=== PATIENT | female | born 1975 | race African-American/Black ===

== ENCOUNTER 2025-10-01 14:47 | Observation (INO) ==
--- NOTE | 2025-10-01 15:09 | EKG ---
Test Reason : CHEST PAIN Blood Pressure : */* mmHG Vent. Rate : 105 BPM Atrial Rate : * BPM P-R Int : * ms QRS Dur : 88 ms QT Int : 388 ms P-R-T Axes : * -33 40 degrees QTc Int : 512 ms Atrial fibrillation with rapid ventricular response with premature ventricular or aberrantly conducted complexes Left axis deviation Low voltage QRS Cannot rule out Anterior infarct , age undetermined Abnormal ECG No previous ECGs available Confirmed by Noel Posey MD ([id number]) on 10/02/2025 5:49:03 AM Referred By: Confirmed By: Noel Posey MD
--- NOTE | 2025-10-01 16:10 | RAD ---
EXAM: CHEST, 1 VIEW HISTORY: CHEST PAIN; COMPARISON: None. TECHNIQUE: AP FINDINGS: Prominent cardiac silhouette, accentuated by AP technique. Pulmonary vascular engorgement. Diffuse hazy airspace opacities. No large pleural effusion or visible pneumothorax. IMPRESSION: Pulmonary vascular engorgement and suspected pulmonary edema. THIS IS AN ELECTRONICALLY VERIFIED FINAL REPORT 10/01/2025 4:06 PM - Electronically signed by Obed Briggs MD
[2025-10-01 16:20] LABS: BLOOD/HEMOGLOBIN,URINE NEGATIVE (NEGATIVE); LEUKOCYTE ESTERASE ,URINE 1+ (NEGATIVE); NITRITES,URINE NEGATIVE (NEGATIVE)
[2025-10-01 16:20] LABS: COR NA(FOR HYPERGLY) 149.0 mmol/L (136-145); CREATININE 1.29 mg/dL (0.55-1.02); eGFR NON BLACK RACES 46.0 (>60)
[2025-10-01 16:22] LABS: INR 1.53 (0.8-1.3)
[2025-10-01 16:23] LABS: MEAN PLATELET VOLUME 9.2 fL (7.4-11.0); RED CELL DISTRIBUTION WIDTH 17.4 % (11.6-16.5)
[2025-10-01 16:27] LABS: APPEARANCE,URINE CLEAR (CLEAR)
--- NOTE | 2025-10-01 16:27 | DR.CP ---
HPI Time Seen Time Seen by Provider: 10/01/25 15:35 PCP Primary Care Physician: Fede Shah in [place] Complaint Chief Complaint Doctor Comments: Patient discharged from [facility] on Tuesday for CHF exacerbation. Patient states she has been getting worsening shortness of breath. She admits she has been eating lots of salt and has not been sticking to her liquid restrictions. She states she also had a little bit of right-sided chest pain. She states her chest pain is chronic and has followed up with cardiology in the past and it is unchanged at this time. She states her shortness of breath is worsening and has some pedal edema which she states is what happens to her when her CHF gets bad. Chief Complaint:: Patient states that she was [facility] for a CHF exacerbation. She states that she was short of breath when she was discharged and it has not gotten better. She also complains of right sided chest pain that she describes as chronic, but states that it is a little worse today. She reports that she has to sleep sitting up, and feels like she is swelling more than usual. COVID-19 Coronavirus risk:travel/contact w/high risk person: No Has patient experienced Coronavirus symptoms: No Source History Provided: Patient Mode of Arrival Mode of Arrival: Wheelchair Timing Onset of Chief Complaint: 09/29/25 PMH PMH Past Medical History: Yes Past Medical History: CHF, Diabetes and Hypertension Past Medical History Comment: Afib Past Surgical History: No Family History History of Family Medical Conditions: Yes Family Medical History: Diabetes Mellitus, Cancer, [place], Coronary Artery Disease, Heart Failure and Hypertension Social History Does patient currently use any type of tobacco product: Yes Have you used tobacco products in the last 12 months: Yes Type of Tobacco Use: Cigarettes Does any household member use tobacco: Yes Alcohol Use: Occasionally Do you use any recreational Drugs:: Yes (Crack - quit 1 month ago) Lives With: Family Lives Where: Home Travel Risk Coronavirus risk:travel/contact w/high risk person: No Has patient experienced Coronavirus symptoms: No Infectious screening In the last 2 months have you had wt loss of >10#?: NO Have you had fever, night sweats or hemotysis?: No Have you traveled outside the country in the last 6 months?: No Isolation: Standard ROS Review of Systems Constitutional: No Symptoms Reported; negative Fever Eyes: No Symptoms Reported ENTM: No Symptoms Reported Respiratoy: See HPI Cardiovascular: See HPI Gastrointestinal/Abdominal: No Symptoms Reported Genitourinary: No Symptoms Reported Neurological: No Symptoms Reported Musculoskeletal: No Symptoms Reported Integumentary: No Symptoms Reported Hematologic/Lymphatic: No Symptoms Reported Endocrine: No Symptoms Reported Psychiatric: No Symptoms Reported All Other Systems: Reviewed and Negative PE Vitals Vitals: Vital Signs Temperature 98.3 F Pulse Rate 103 Pulse Rate 109 Pulse Rate 112 Pulse Rate 113 Pulse Rate 116 Pulse Rate 107 Pulse Rate 108 Pulse Rate 107 Pulse Rate 111 Pulse Rate 104 Pulse Rate 111 Pulse Rate 111 Pulse Rate 119 Pulse Rate 113 Pulse Rate 113 Pulse Rate 108 Pulse Rate 0 Respiratory Rate 29 Respiratory Rate 29 Respiratory Rate 24 Respiratory Rate 28 Respiratory Rate 25 Respiratory Rate 27 Respiratory Rate 32 Respiratory Rate 24 Respiratory Rate 30 Respiratory Rate 26 Respiratory Rate 23 Respiratory Rate 32 Respiratory Rate 30 Respiratory Rate 22 Respiratory Rate 24 Respiratory Rate 34 Blood Pressure 142/101 Blood Pressure 142/101 Blood Pressure 136/94 Blood Pressure 155/103 Blood Pressure 159/85 Blood Pressure 158/105 Blood Pressure 137/99 Blood Pressure 139/107 Blood Pressure 139/105 Blood Pressure 139/107 O2 Sat by Pulse Oximetry 96 O2 Sat by Pulse Oximetry 94 O2 Sat by Pulse Oximetry 99 O2 Sat by Pulse Oximetry 97 O2 Sat by Pulse Oximetry 96 O2 Sat by Pulse Oximetry 97 O2 Sat by Pulse Oximetry 96 O2 Sat by Pulse Oximetry 94 O2 Sat by Pulse Oximetry 98 O2 Sat by Pulse Oximetry 97 O2 Sat by Pulse Oximetry 98 General Limitations: No Limitations General Appearance: Alert and In No Apparent Distress Head Head Exam: Normal Inspection Eyes Eye exam: Normal Appearance Chest Chest Inspection: Normal Inspection Respiratory Respiratory Exam: Normal Lung Sounds Bilat Cardiovascular Cardiovascular Exam: Regular Rate and Normal Rhythm Pulse: Normal Edema: Normal Abdominal Exam Abdominal Exam: Normal Inspection, Normal Bowel Sounds and Soft; negative Distention, Tenderness, Guarding, Rebound, Rigidity or Ascites Extremities Extremities Exam: Normal Capillary Refill and Edema (1+ pedal edema to mid patel.) Back Back Exam: Normal Inspection Neurologic Neurological Exam: Alert and Oriented X3 Psychiatric Psychiatric Exam: Normal Affect and Normal Mood Skin Skin Exam: Warm, Dry, Intact and Normal Color COURSE Treatment Treatment: Patient with very difficult IV access had to use central line. Patient has had some improvement with IV Lasix in ER. Patient is agreeable to admission. Discussed results of workup so far. Critical Care Notes Total Time (mins): 36 Critical Diagnosis: CHF exacerbation Critical Interventions: Time spent starting central line with surgeon, on patient education, ordering and interpreting workup. Ruling out pulmonary embolism. Time also spent coordinating care with hospitalist and setting up for admission. ROR Labs Reviewed Laboratory Results Reviewed?: Yes 10/01/25 16:02 10/01/25 16:02 Laboratory: WBC 2.8 X10^3/uL (3.6-10.0) L 10/01/25 16:02 RBC 3.34 X10^6/uL (3.5-5.4) L 10/01/25 16:02 Hgb 9.0 g/dL (12.0-16.0) L 10/01/25 16:02 Hct 28.3 % (36.0-47.0) L 10/01/25 16:02 MCV 84.8 fL (80.0-100.0) 10/01/25 16:02 MCH 27.1 pg (27.0-34.0) 10/01/25 16:02 MCHC 32.0 g/dL (33.0-35.0) L 10/01/25 16:02 RDW 17.4 % (11.6-16.5) H 10/01/25 16:02 Plt Count 181 X10^3/uL (150.0-450.0) 10/01/25 16:02 MPV 9.2 fL (7.4-11.0) 10/01/25 16:02 Neut % (Auto) 59.1 % (42.0-75.0) 10/01/25 16:02 Lymph % (Auto) 27.7 % (21.0-51.0) 10/01/25 16:02 Bollinger % (Auto) 8.6 % (0.0-13.0) 10/01/25 16:02 Eos % (Auto) 4.1 % (0.9-2.9) H 10/01/25 16:02 Baso % (Auto) 0.5 % (0.2-1.0) 10/01/25 16:02 Neut # (Auto) 1.7 x10^3/uL (2.2-4.8) L 10/01/25 16:02 Lymph # (Auto) 0.8 X10^3/uL (1.3-2.9) L 10/01/25 16:02 Bollinger # (Auto) 0.2 x10^3/uL (0.3-0.8) L 10/01/25 16:02 Eos # (Auto) 0.1 x10^3/uL (0.0-0.2) 10/01/25 16:02 Baso # (Auto) 0.0 X10^3/uL (0.0-0.1) 10/01/25 16:02 Absolute Nucleated RBC 0.5 /100WBC 10/01/25 16:02 PT 18.5 SECONDS (11.8-14.3) 10/01/25 16:02 INR Target Range - 10/01/25 16:02 INR 1.53 (0.8-1.3) H 10/01/25 16:02 APTT 36.2 SECONDS (22.9-36.5) 10/01/25 16:02 PTT Comment - 10/01/25 16:02 D-Dimer 1.10 ug/ml (0.0-0.57) H 10/01/25 16:02 Sodium 142 mmol/L (136-145) 10/01/25 16:02 Corrected Sodium 149 mmol/L (136-145) H 10/01/25 16:02 Potassium 3.8 mmol/L (3.5-5.1) 10/01/25 16:02 Chloride 103 mmol/L (98-107) 10/01/25 16:02 Carbon Dioxide 31.5 mmol/L (21-32) 10/01/25 16:02 BUN 28 mg/dL (7-18) H 10/01/25 16:02 Creatinine 1.29 mg/dL (0.55-1.02) H 10/01/25 16:02 Est GFR (MDRD) Af Amer 56 (>60) L 10/01/25 16:02 Est GFR (MDRD) Non-Af 46 (>60) L 10/01/25 16:02 Glucose 394 mg/dL (65-99) H 10/01/25 16:02 Calcium 7.8 mg/dL (8.5-10.1) L 10/01/25 16:02 Troponin I High Sens 16.2 ng/L (4.0-60.0) 10/01/25 17:50 B-Natriuretic Peptide 705 pg/mL (0-79) H 10/01/25 16:02 Specimen Type Clean catch urine 10/01/25 15:38 Urine Color Straw (YELLOW) 10/01/25 15:38 Urine Appearance Clear (CLEAR) 10/01/25 15:38 Urine pH 7.0 (5.0 - 8.0) 10/01/25 15:38 Ur Specific Central 1.005 (1.000-1.030) 10/01/25 15:38 Urine Protein Negative (NEGATIVE) 10/01/25 15:38 Urine Glucose (UA) 3+ (NEGATIVE) 10/01/25 15:38 Urine Ketones Negative (NEGATIVE) 10/01/25 15:38 Urine Blood Negative (NEGATIVE) 10/01/25 15:38 Urine Nitrite Negative (NEGATIVE) 10/01/25 15:38 Urine Bilirubin Negative (NEGATIVE) 10/01/25 15:38 Urine Urobilinogen Normal (NORMAL) 10/01/25 15:38 Ur Leukocyte Esterase 1+ (NEGATIVE) 10/01/25 15:38 Urine RBC None seen /HPF (0-3) 10/01/25 15:38 Urine WBC 0-2 /HPF (0-5) 10/01/25 15:38 Ur Squamous Epith Cells Rare /HPF (NEGATIVE) 10/01/25 15:38 Urine Bacteria Trace /HPF (NEGATIVE) 10/01/25 15:38 Ur Culture Indicated? No/not indicated 10/01/25 15:38 Urine Opiates Screen Negative (NEG=<300) 10/01/25 15:38 Urine Methadone Screen Negative (NEG=<300) 10/01/25 15:38 Ur Barbiturates Screen Negative (NEG=<200) 10/01/25 15:38 Ur Phencyclidine Scrn Negative (NEG=<25) 10/01/25 15:38 Ur Amphetamines Screen Negative (NEG=<1000) 10/01/25 15:38 U Benzodiazepines Scrn Negative (NEG=<200) 10/01/25 15:38 Urine Cocaine Screen Negative (NEG=<300) 10/01/25 15:38 U Marijuana (THC) Screen Negative (NEG=<50) 10/01/25 15:38 Other Results Comments: Name: CHICHI ACUÑA : 1975 Sex: F Location: ER Order Number(s): [id number] Procedure(s):CTA, CHEST Ordering Physician: Piter Clark Primary Care: Andrzej CHO Service Date: 10/01/25 Service Time: 1634 EXAM: CTA, CHEST HISTORY: Shortness of breath, elevated D-dimer COMPARISON: Frontal chest radiograph same day 3:48 p.m. TECHNIQUE: CT angiography of the chest with intravenous contrast. Three-dimensional reconstructions and/or MIPS images produced and reviewed. FINDINGS: The bolus timing is adequate. Negative for pulmonary embolus. The thoracic aorta tapers normally. The heart is enlarged. There is a small pericardial effusion present. There is mediastinal lymphadenopathy present. There is bilateral axillary lymphadenopathy present. There are bilateral layering pleural effusions, moderate on the right and small on the left. Limited visualization of the upper abdomen demonstrates reflux of contrast into the hepatic vasculature suggesting right heart dysfunction. No acute upper abdominal process. Lung windows demonstrate bilateral interstitial and airspace opacities suggesting pulmonary edema. No suspicious bony lesion. IMPRESSION: Negative for pulmonary embolus. Decompensated congestive heart failure. All CT scans at this facility use dose modulation, iterative reconstruction, and/or weight based dosing when appropriate to reduce radiation dose to as low as reasonably achievable. THIS IS AN ELECTRONICALLY VERIFIED FINAL REPORT 10/01/2025 5:54 PM - Electronically signed by Donny Woodson MD XRAY X-ray Results: Name: CHICHI ACUÑA : 1975 Sex: F Location: ER Order Number(s): [id number] Procedure(s):CHEST, 1 VIEW X-RAY Ordering Physician: Piter Clark Primary Care: Andrzej CHO Service Date: 10/01/25 Service Time: 1455 EXAM: CHEST, 1 VIEW HISTORY: CHEST PAIN; COMPARISON: None. TECHNIQUE: AP FINDINGS: Prominent cardiac silhouette, accentuated by AP technique. Pulmonary vascular engorgement. Diffuse hazy airspace opacities. No large pleural effusion or visible pneumothorax. IMPRESSION: Pulmonary vascular engorgement and suspected pulmonary edema. THIS IS AN ELECTRONICALLY VERIFIED FINAL REPORT 10/01/2025 4:06 PM - Electronically signed by Obed Briggs MD EKG Rate: 105 Tyner: LAD Rhythm: Afib ST: Normal Opioid Opioid Risk Tool Age (Mayco box if 16-45): No History of Preadolescent Sexual Abuse: No Total: 0 Total Score Risk Category: Low Risk Copyright: [facility] predicting aberrant behaviors Discharge Plan Diagnosis Discharge Problem: CHF exacerbation, A-fib, Diabetes, CKD (chronic kidney disease), HIV (human immunodeficiency virus infection) Discharge Plan Patient Disposition: ADMITTED INPATIENT Condition: Stable Prescriptions: No Action insulin glargine [Lantus U-100 Insulin] 100 unit/mL solution 15 unit SUBCUT BID diltiazem HCl [DILT-XR] 240 mg capsule,ext.rel 24h degradable 240 mg PO QDAY amiodarone 200 mg tablet 200 mg PO BID metoprolol succinate 50 mg tablet extended release 24 hr 100 mg PO QDAY bumetanide 1 mg tablet 1 mg PO QDAY Eliquis 5 mg tablet 5 mg PO BID Biktarvy 50-200-25 mg tablet 1 tab PO QDAY Health Concerns: Post Hospitalization: new medications and changes needed to prevent readmission or further decline. Pt educated and given instructions on all concerns. Plan of Treatment: Continue with present treatment and follow up plan. Pt is to keep follow up appointment as instructed and take medications as ordered. Orders to Discharge Patient Discharge Orders: Transfer (Routine); Ordered 10/01/25 Ordered By: Piter Clark Follow ups/Referrals Follow ups/Referrals: ,Misc [Primary Care Provider] - 3 days Instructions Stand Alone Forms: Find Help Web Site, Post Hospital Follow Up Care Print Language: YI
[2025-10-01 16:28] LABS: SQUAMOUS EPITHELIAL CELL,UR RARE /HPF (NEGATIVE)
[2025-10-01] MEDS: OFIRMEV IV 1000 MG VIAL 1,000 MG/100 ML VIAL IV ONE ×2 (16:29→20:36)
[2025-10-01] MEDS: LASIX IVP ONE (16:51)
[2025-10-01] MEDS: OMNIPAQUE 350 mg/mL 100 mL BTL IVP NR (17:21)
[2025-10-01] MEDS: PERCOCET TAB 5/325 MG PO ONE (17:46)
--- NOTE | 2025-10-01 17:58 | CT ---
EXAM: CTA, CHEST HISTORY: Shortness of breath, elevated D-dimer COMPARISON: Frontal chest radiograph same day 3:48 p.m. TECHNIQUE: CT angiography of the chest with intravenous contrast. Three-dimensional reconstructions and/or MIPS images produced and reviewed. FINDINGS: The bolus timing is adequate. Negative for pulmonary embolus. The thoracic aorta tapers normally. The heart is enlarged. There is a small pericardial effusion present. There is mediastinal lymphadenopathy present. There is bilateral axillary lymphadenopathy present. There are bilateral layering pleural effusions, moderate on the right and small on the left. Limited visualization of the upper abdomen demonstrates reflux of contrast into the hepatic vasculature suggesting right heart dysfunction. No acute upper abdominal process. Lung windows demonstrate bilateral interstitial and airspace opacities suggesting pulmonary edema. No suspicious bony lesion. IMPRESSION: Negative for pulmonary embolus. Decompensated congestive heart failure. All CT scans at this facility use dose modulation, iterative reconstruction, and/or weight based dosing when appropriate to reduce radiation dose to as low as reasonably achievable. THIS IS AN ELECTRONICALLY VERIFIED FINAL REPORT 10/01/2025 5:54 PM - Electronically signed by Donny Woodson MD
[2025-10-01] MEDS: APRESOLINE INJ 20 MG VIAL IVP PRN (19:34)
[2025-10-01] MEDS: CONSULT PHARMACY - POTASSIUM & MAGNESIUM XX SCH (20:30)
--- NOTE | 2025-10-01 20:30 | RAD ---
EXAM: CHEST HISTORY: s/p central line insertion; COMPARISON: Portable chest x-ray from earlier on the same date. TECHNIQUE: Frontal view of the chest was submitted for interpretation. FINDINGS: Interval placement of a left subclavian central line with the distal tip projecting at the superior margin of the SVC. No evidence for acute infiltrates, pleural effusion, or pneumothorax. Interval decreased haziness projecting over the lung kumar. Stable cardiac enlargement. No evidence for pulmonary vascular congestion. IMPRESSION: Central line as noted. No evidence for pneumothorax. Stable cardiac enlargement. No evidence for pulmonary vascular congestion. Interval decreased haziness projecting over the lung kumar. THIS IS AN ELECTRONICALLY VERIFIED FINAL REPORT 10/01/2025 8:26 PM - Electronically signed by Earle Post DO
[2025-10-01] MEDS ORDERED: TYLENOL 325 MG TAB PO PRN (20:31)
[2025-10-01] MEDS: OMNIPAQUE 350 mg/mL 100 mL BTL 100 ML ONE (20:35)
[2025-10-01] MEDS: SNACK - Diabetic Appropriate PO SCH (20:39)
[2025-10-01 20:57] VITALS: BMI 37.7
[2025-10-01] MEDS: PERCOCET TAB 5/325 MG ONE (20:58)
[2025-10-01] MEDS: ELIQUIS PO SCH (21:14)
[2025-10-01] MEDS: K-DUR TAB 20 MEQ PO ONE (21:14)
[2025-10-01] MEDS: CORDARONE TAB 200 MG PO SCH (21:15)
[2025-10-01] MEDS: NORCO 5/325 MG TAB PO PRN (21:15)
[2025-10-01] MEDS: NovoLIN R (or HumuLIN R) SUBCUT PRN (22:34)
[2025-10-01] MEDS: DILAUDID INJ IVP ONE (23:03)
[2025-10-02 02:53] LABS: MEAN PLATELET VOLUME 9.2 fL (7.4-11.0); RED CELL DISTRIBUTION WIDTH 17.4 % (11.6-16.5)
[2025-10-02 03:07] LABS: COR CA(FOR HYPOALB) 8.7 mg/dL (8.5-10.1); COR NA(FOR HYPERGLY) 144 mmol/L (136-145); CREATININE 1.12 mg/dL (0.55-1.02); eGFR NON BLACK RACES 55 (>60)
[2025-10-02] MEDS ORDERED: CONSULT PHARMACY - POTASSIUM & MAGNESIUM XX SCH (05:00)
[2025-10-02] MEDS: K-DUR TAB 20 MEQ PO ONE (05:28)
[2025-10-02] MEDS: LASIX IVP SCH (08:28)
[2025-10-02] MEDS: MAG-OX TAB PO SCH ×2 (08:28→20:14)
[2025-10-02] MEDS: CARDIZEM CD 240 MG 24-HR PO SCH (08:28)
[2025-10-02] MEDS: K-DUR TAB 20 MEQ PO SCH (08:28)
[2025-10-02] MEDS: TOPROL XL PO SCH (08:29)
[2025-10-02] MEDS: ULTRAM PO PRN (09:07)
--- NOTE | 2025-10-02 09:58 | DR.H&P ---
H&P History & Physical for Day of: H&P Date: 10/02/25 Chief Complaint Chief Complaint: SOB, edema History of Present Illness History of Present Illness: Patient is a 49-year-old female with a past medical history of CAD, CHF, atrial fibrillation, hypertension and diabetes presented with worsening shortness of breath and edema. She was recently [facility] on Tuesday and states that she continued to get worse. She has been taking Bumex but reports it has not been working. She does not use oxygen at home. ER workup showed elevated BNP, troponin x 3 negative, D-dimer elevated. CTA was negative for PE, did show decompensated CHF. Patient denies having any echocardiogram recently. She does follow-up with cardiology, Dr. Ordaz. Patient was started on IV Lasix and admitted for further evaluation. She is currently on 2 L nasal cannula. Labs/imaging reviewed: -WBC 2.8 hemoglobin 8.8 potassium 3.5 magnesium 1.6 creatinine 1.12 troponin x 3 negative - BNP 625 - CTA reviewed Plan: Admit to [facility] with telemetry. Consult cardiology. Continue IV Lasix, strict I's and O's, daily weight. Resume home medications. Order echocardiogram. Replace electrolytes as per protocol. Add Toradol 15 mg every 6 as needed. Ambulate as tolerated. Wean oxygen as tolerated. Monitor a.m. labs and imaging. Time spent for clinical assessment, reviewing labs/imaging, physical exam, decision making and documentation greater than 45 mins. Past Medical History Past Medical History: CHF, Diabetes and Hypertension Past Surgical History Surgical History: No History Family History Family Medical History: Diabetes Mellitus, Cancer, [place], Coronary Artery Disease, Heart Failure and Hypertension Social History Does patient currently use any type of tobacco product: Yes Have you used tobacco products in the last 12 months: Yes Type of Tobacco Use: Cigarettes Does any household member use tobacco: Yes Alcohol Use: Occasionally Drug Use: Other Medications Home Medications: Home Medications Medication Instructions Recorded Confirmed Type amiodarone 200 mg tablet 200 mg PO BID 10/01/2510/01 History apixaban 5 mg tablet (Eliquis) 5 mg PO BID 10/01/25 History bictegravir 50 mg-emtricitabine 1 tab PO QDAY 10/01/25 10/01/25 History 200 mg-tenofovir alafenam 25 mg tablet (Biktarvy) bumetanide 1 mg tablet 1 mg PO QDAY 10/01/25 History diltiazem HCl 240 mg 240 mg PO QDAY 10/01/2503/22 History capsule,extended release 24 hr, controlled (DILT-XR) insulin glargine 100 unit/mL 15 unit subcut BID 10/01/25 History subcutaneous solution (Lantus U-100 Insulin) metoprolol succinate 50 mg 100 mg PO QDAY 10/01/2503/22 History tablet,extended release 24 hr Allergies Allergies Allergy/AdvReac Type Severity Reaction Status Date / Time Penicillins Allergy Verified 10/01/25 16:33 Labs 10/02/25 02:35 10/02/25 02:35 Labs: Laboratory WBC 2.8 X10^3/uL (3.6-10.0) L 10/02/25 02:35 RBC 3.24 X10^6/uL (3.5-5.4) L 10/02/25 02:35 Hgb 8.8 g/dL (12.0-16.0) L 10/02/25 02:35 Hct 27.5 % (36.0-47.0) L 10/02/25 02:35 MCV 84.8 fL (80.0-100.0) 10/02/25 02:35 MCH 27.1 pg (27.0-34.0) 10/02/25 02:35 MCHC 32.0 g/dL (33.0-35.0) L 10/02/25 02:35 RDW 17.4 % (11.6-16.5) H 10/02/25 02:35 Plt Count 157 X10^3/uL (150.0-450.0) 10/02/25 02:35 MPV 9.2 fL (7.4-11.0) 10/02/25 02:35 Neut % (Auto) 54.3 % (42.0-75.0) 10/02/25 02:35 Lymph % (Auto) 32.3 % (21.0-51.0) 10/02/25 02:35 [place] % (Auto) 8.4 % (0.0-13.0) 10/02/25 02:35 Eos % (Auto) 4.4 % (0.9-2.9) H 10/02/25 02:35 Baso % (Auto) 0.6 % (0.2-1.0) 10/02/25 02:35 Neut # (Auto) 1.5 x10^3/uL (2.2-4.8) L 10/02/25 02:35 Lymph # (Auto) 0.9 X10^3/uL (1.3-2.9) L 10/02/25 02:35 [place] # (Auto) 0.2 x10^3/uL (0.3-0.8) L 10/02/25 02:35 Eos # (Auto) 0.1 x10^3/uL (0.0-0.2) 10/02/25 02:35 Baso # (Auto) 0.0 X10^3/uL (0.0-0.1) 10/02/25 02:35 Absolute Nucleated RBC 0.4 /100WBC 10/02/25 02:35 PT 18.5 SECONDS (11.8-14.3) 10/01/25 16:02 INR Target Range - 10/01/25 16:02 INR 1.53 (0.8-1.3) H 10/01/25 16:02 APTT 36.2 SECONDS (22.9-36.5) 10/01/25 16:02 PTT Comment - 10/01/25 16:02 D-Dimer 1.10 ug/ml (0.0-0.57) H 10/01/25 16:02 Sodium 141 mmol/L (136-145) 10/02/25 02:35 Corrected Sodium 144 mmol/L (136-145) 10/02/25 02:35 Potassium 3.5 mmol/L (3.5-5.1) 10/02/25 02:35 Chloride 103 mmol/L (98-107) 10/02/25 02:35 Carbon Dioxide 28.8 mmol/L (21-32) 10/02/25 02:35 BUN 23 mg/dL (7-18) H 10/02/25 02:35 Creatinine 1.12 mg/dL (0.55-1.02) H 10/02/25 02:35 Est GFR (MDRD) Af Amer > 60 (>60) 10/02/25 02:35 Est GFR (MDRD) Non-Af 55 (>60) L 10/02/25 02:35 Glucose 217 mg/dL (65-99) H 10/02/25 02:35 POC Glucose (mg/dL) 122 mg/dL (65-99) H 10/02/25 05:54 Calcium 7.6 mg/dL (8.5-10.1) L 10/02/25 02:35 Corrected Calcium 8.7 mg/dL (8.5-10.1) 10/02/25 02:35 Magnesium 1.6 mg/dL (2.0-2.9) L 10/02/25 02:35 Total Bilirubin 0.40 mg/dL (0.2-1.0) 10/02/25 02:35 AST 34 Units/L (15-37) 10/02/25 02:35 ALT 39 Units/L (12-78) 10/02/25 02:35 Alkaline Phosphatase 187 Units/L (46-116) H 10/02/25 02:35 Troponin I High Sens 22.6 ng/L (4.0-60.0) 10/02/25 02:35 B-Natriuretic Peptide 625 pg/mL (0-79) H 10/02/25 02:35 Total Protein 7.2 g/dL (6.4-8.2) 10/02/25 02:35 Albumin 2.6 g/dL (3.4-5.0) L 10/02/25 02:35 Globulin 4.6 g/dL (2.5-4.5) H 10/02/25 02:35 Albumin/Globulin Ratio 0.6 Ratio (1.1-2.1) L 10/02/25 02:35 Specimen Type Clean catch urine 10/01/25 15:38 Urine Color Straw (YELLOW) 10/01/25 15:38 Urine Appearance Clear (CLEAR) 10/01/25 15:38 Urine pH 7.0 (5.0 - 8.0) 10/01/25 15:38 Ur Specific [place] 1.005 (1.000-1.030) 10/01/25 15:38 Urine Protein Negative (NEGATIVE) 10/01/25 15:38 Urine Glucose (UA) 3+ (NEGATIVE) 10/01/25 15:38 Urine Ketones Negative (NEGATIVE) 10/01/25 15:38 Urine Blood Negative (NEGATIVE) 10/01/25 15:38 Urine Nitrite Negative (NEGATIVE) 10/01/25 15:38 Urine Bilirubin Negative (NEGATIVE) 10/01/25 15:38 Urine Urobilinogen Normal (NORMAL) 10/01/25 15:38 Ur Leukocyte Esterase 1+ (NEGATIVE) 10/01/25 15:38 Urine RBC None seen /HPF (0-3) 10/01/25 15:38 Urine WBC 0-2 /HPF (0-5) 10/01/25 15:38 Ur Squamous Epith Cells Rare /HPF (NEGATIVE) 10/01/25 15:38 Urine Bacteria Trace /HPF (NEGATIVE) 10/01/25 15:38 Ur Culture Indicated? No/not indicated 10/01/25 15:38 Urine Opiates Screen Negative (NEG=<300) 10/01/25 15:38 Urine Methadone Screen Negative (NEG=<300) 10/01/25 15:38 Ur Barbiturates Screen Negative (NEG=<200) 10/01/25 15:38 Ur Phencyclidine Scrn Negative (NEG=<25) 10/01/25 15:38 Ur Amphetamines Screen Negative (NEG=<1000) 10/01/25 15:38 U Benzodiazepines Scrn Negative (NEG=<200) 10/01/25 15:38 Urine Cocaine Screen Negative (NEG=<300) 10/01/25 15:38 U Marijuana (THC) Screen Negative (NEG=<50) 10/01/25 15:38 Review of Systems Constitutional: No Symptoms Reported Eyes: No Symptoms Reported ENT: No Symptoms Reported Respiratory: Shortness of Breath and SOB with Excertion Cardiovascular: Edema Gastrointestinal: No Symptoms Reported Genitourinary: No Symptoms Reported Musculoskeletal: No Symptoms Reported Skin: No Symptoms Reported Neurological: No Symptoms Reported Physical Exam Vital Signs: Vital Signs Temperature 97.9 F Temperature 98.4 F Pulse Rate [Brachial] 107 Pulse Rate [Brachial] 91 Respiratory Rate 20 Respiratory Rate 16 Respiratory Rate 20 Blood Pressure [Right Arm] 140/69 Blood Pressure [Right Arm] 134/98 O2 Sat by Pulse Oximetry 94 O2 Sat by Pulse Oximetry 94 Oriented: Normal Respiratory: Diminished Throughout Cardiovascular: Tachycardia and Edema Auscultation: Bowel Sounds: Normal Palpation: Normal Tenderness: Normal Skin: Normal Musculoskeletal: Normal Psychiatric: Normal Mood Description: Calm Affect: Normal Speech Pattern: Clear and Appropriate Assessment/Plan (1) CHF exacerbation: Qualifiers: Heart failure type: unspecified Qualified Code(s): I50.9 - Heart failure, unspecified Status: Acute (2) A-fib: Qualifiers: Atrial fibrillation type: unspecified chronic Qualified Code(s): I48.20 - Chronic atrial fibrillation, unspecified Status: Chronic (3) Diabetes: Qualifiers: Diabetes mellitus type: type 2 Diabetes mellitus intermission coordinator insulin use: with intermission coordinator use Diabetes mellitus complication status: with hyperglycemia Q ualified Code(s): E11.65 - Type 2 diabetes mellitus with hyperglycemia; Z79.4 - nursing home (current) use of insulin Status: Chronic (4) CKD (chronic kidney disease): Qualifiers: Chronic kidney disease stage: unspecified stage Qualified Code(s): N 18.9 - Chronic kidney disease, unspecified Status: Chronic (5) HTN (hypertension): Qualifiers: Hypertension type: primary hypertension Qualified Code(s): I10 - Essential (primary) hypertension Status: Chronic Review H&P Reviewed: Yes Patient was examined?: Yes
[2025-10-02] MEDS: LANTUS SC SCH (10:03)
[2025-10-02] MEDS: BICTEGRAV EMTRICIT TENOFOV ALA PO SCH (10:49)
--- NOTE | 2025-10-02 13:39 | RAD ---
EXAM: CHEST, 1 VIEW HISTORY: CHF EXACERBATION ; CHF, DM, HTN, AFIB COMPARISON: 10/01/2025 TECHNIQUE: AP r.br.br.br cardiac silhouette, accentuated by AP technique. Low lung volumes. Increased hazy perihilar and bibasilar opacities. No large pleural effusion or visible pneumothorax. IMPRESSION: Mild increased hazy perihilar and bibasilar opacities, suspicious for pulmonary edema. THIS IS AN ELECTRONICALLY VERIFIED FINAL REPORT 10/02/2025 1:36 PM - Electronically signed by Obed Briggs MD
--- NOTE | 2025-10-02 14:40 | DR.OPNOTE ---
OP NOTE Pre-Op Diagnosis: Congestive heart failure, lack of IV access Post-Op Diagnosis: Same Procedure Date Date Of Procedure: 10/01/25 Procedure: PROCEDURE: Need for central venous aces NARRATIVE: The patient was placed in the Trendelenburg position and the entire left chest prepped and draped in sterile fashion as was the left neck. The skin overlying the left clavicle infiltrated with 1% Xylocaine and a 16-gauge needle used to puncture left subclavian vein with aspiration of blood and placement of a 0.035 inch wire. Incision made over the wire with a #11 knife blade and dilator placed over the guidewire into the left subclavian vein. Dilator removed and the triple-lumen catheter placed over the wire into the vein. Wire removed. All ports aspirated of blood and flushed with heparinized saline. The catheter then secured to the skin interrupted silk sutures. Postprocedure chest x-ray showed good placement with no pneumothorax. Patient tolerated this well. Type of Anesthesia: Local (1% Xylocaine) Findings: as above Type of Fluids Used:: Normal Saline EBL: minimal Complications:: none Needle/Sponge Count:: correct Disposition/Condition: Pt. tolerated procedure without difficulty. Postprocedure procedure chest x-ray showed no pneumothorax with good placement of the catheter into the junction of the superior vena cava and the atrium
--- NOTE | 2025-10-02 14:44 | DR.CONSULT ---
CONSULT Consultation for Day of: Date: 10/02/25 Chief Complaint Chief Complaint: sob/fast hr Allergies Allergies Allergy/AdvReac Type Severity Reaction Status Date / Time Penicillins Allergy Verified 10/01/25 16:33 History of Present Illness History of Present Illness: 49 yo female- cath 2018 w/o cad- severe JERAMY but no cpap- cardiomyopathy EF 20-50% throughout years- hdad tte/cv few years ago for aflutter- d/glory few days ago from [facility] - was still in ch[facility] so came here- states not so faithful with amiodorone- states faithful with diuretic and doac- found to be in afib/rvr and chf- echo ef 35-45%- pa pressures 61 Past Medical History Past Medical History: CHF, Diabetes and Hypertension Past Surgical History Surgical History: No History Family History Family Medical History: Diabetes Mellitus, Cancer, [place], Coronary Artery Disease, Heart Failure and Hypertension Social History Does patient currently use any type of tobacco product: Yes Have you used tobacco products in the last 12 months: Yes Type of Tobacco Use: Cigarettes Does any household member use tobacco: Yes Alcohol Use: Occasionally Drug Use: Other Medications Home Medications: Penicillins Allergy (Verified 10/01/25 16:33) CONTINUE taking the following medications amiodarone 200 mg tablet 200 mg PO BID 10/01/25 [History] apixaban 5 mg tablet (Eliquis) 5 mg PO BID 10/01/25 [History] bictegravir 50 mg-emtricitabine 200 mg-tenofovir alafenam 25 mg tablet (Biktarvy) 1 tab PO QDAY 10/01/25 [History] bumetanide 1 mg tablet 1 mg PO QDAY 10/01/25 [History] diltiazem HCl 240 mg capsule,extended release 24 hr, controlled (DILT-XR) 240 mg PO QDAY 10/01/25 [History] insulin glargine 100 unit/mL subcutaneous solution (Lantus U-100 Insulin) 15 unit subcut BID 10/01/25 [History] metoprolol succinate 50 mg tablet,extended release 24 hr 100 mg PO QDAY 10/01/25 [History] Physical Exam Vital Signs: Vital Signs Temperature 98.4 F Temperature 97.9 F Pulse Rate [Brachial] 98 Pulse Rate [Brachial] 107 Respiratory Rate 20 Respiratory Rate 20 Respiratory Rate 20 Respiratory Rate 16 Blood Pressure [Right Arm] 137/74 Blood Pressure [Right Arm] 140/69 O2 Sat by Pulse Oximetry 97 O2 Sat by Pulse Oximetry 94 alert ox3 mild resp distress decreased bs bases irreg irreg mild edema labs: hct 27 wbc 2.8 plt 157 d dimer 1.2 but cta : no clot inr 1.57 so doac effect cr 1.12 bnp 600 CTA: no PE/but chf/effusions cxr: chf echo: ef 35-40% big LA/r heart PA 60 Plan (1) CHF exacerbation: Status: Acute Qualifiers: Heart failure type: unspecified Qualified Code(s): I50.9 - Heart f ailure, unspecified (2) A-fib: Status: Chronic Qualifiers: Atrial fibrillation type: unspecified chronic Qualified Code(s): I48.20 - Chronic atrial fibrillation, unspecified Plan: reload oral amio- diuresis- abilio/cv in am (3) HTN (hypertension): Status: Chronic Qualifiers: Hypertension type: primary hypertension Qualified Code(s): I10 - Essential (primary) hypertension (4) JERAMY (obstructive sleep apnea): Status: Acute (5) Pulmonary hypertension: Status: Acute (6) HIV (human immunodeficiency virus infection): Status: Acute
[2025-10-02] MEDS: TORADOL 15 MG VIAL IVP PRN (14:48)
[2025-10-02] MEDS: CORDARONE TAB 200 MG PO SCH (14:55)
[2025-10-02] MEDS: MILK OF MAGNESIA PO PRN (17:28)
[2025-10-03 05:44] LABS: MEAN PLATELET VOLUME 9.0 fL (7.4-11.0); RED CELL DISTRIBUTION WIDTH 17.6 % (11.6-16.5)
[2025-10-03 05:59] LABS: COR CA(FOR HYPOALB) 9.2 mg/dL (8.5-10.1); COR NA(FOR HYPERGLY) 141.0 mmol/L (136-145); CREATININE 1.59 mg/dL (0.55-1.02); eGFR NON BLACK RACES 37.0 (>60)
--- NOTE | 2025-10-03 11:01 | EKG ---
Test Reason : ERWIN/ cardioversion today Blood Pressure : */* mmHG Vent. Rate : 87 BPM Atrial Rate : * BPM P-R Int : * ms QRS Dur : 94 ms QT Int : 448 ms P-R-T Axes : * -52 59 degrees QTc Int : 539 ms Atrial fibrillation /flutter Left axis deviation Low voltage QRS Cannot rule out Anterior infarct (cited on or before 01-OCT-2025) Prolonged QT Abnormal ECG When compared with ECG of 01-OCT-2025 15:08, No significant change was found Confirmed by Noel Posey MD ([id number]) on 10/03/2025 11:16:45 AM Referred By: Confirmed By: Noel Posey MD
--- NOTE | 2025-10-03 11:32 | PCM.PROG ---
Progress Note Progress Note for Day of Date of Exam: 10/03/25 Subjective Subjective: Patient is a 49-year-old female with a past medical history of CHF, atrial fibrillation, obstructive sleep apnea, hypertension, pulmonary hypertension, HIV, presenting with atrial fibrillation with RVR and CHF exacerbation. Labs/imaging: WBC 2.8, hemoglobin 8.9, platelets 175, sodium 140, potassium 4.3, creatinine 1.59, glucose 147. Yesterday patient's chest x-ray did show pulmonary edema, she has had an echo that shows 35 to 40% ejection fraction. CTA reveals no pulmonary embolism. She is being followed by cardiology with plans on having a ERWIN and being cardioverted today. Otherwise we will continue her current medications and current treatment plan. Continue closely monitor and follow-up labs/imaging. Past Medical Family Social History Allergies: Allergies Penicillins Allergy (Verified 10/01/25 16:33) Review of Systems ROS changes noted: see HPI Vital Signs and I&O's Vital Signs: Vital Signs Temperature 97.9 F Temperature 98.3 F Pulse Rate [Brachial] 98 Pulse Rate [Brachial] 90 Respiratory Rate 20 Respiratory Rate 20 Blood Pressure [Right Arm] 135/82 Blood Pressure [Right Arm] 123/85 O2 Sat by Pulse Oximetry 100 O2 Sat by Pulse Oximetry 100 Intake and Output: Intake & Output 09/30/25 10/01/25 10/02/25 10/03/25 23:59 23:59 23:59 23:59 Intake Total 625 / 625 1960 / 1960 Output Total 1200 / 1200 1250 / 1250 Balance -575 / -575 710 / 710 Physical Exam Oriented: Normal Cardiovascular: Tachycardia and Edema Auscultation: Bowel Sounds: Normal Tenderness: Normal Skin: Normal Musculoskeletal: Normal Psychiatric: Normal Mood Description: Calm Affect: Normal Speech Pattern: Clear and Appropriate Laboratory and Diagnostics 10/03/25 05:32 10/03/25 05:32 Labs: Laboratory WBC 2.8 X10^3/uL (3.6-10.0) L 10/03/25 05:32 RBC 3.32 X10^6/uL (3.5-5.4) L 10/03/25 05:32 Hgb 8.9 g/dL (12.0-16.0) L 10/03/25 05:32 Hct 28.0 % (36.0-47.0) L 10/03/25 05:32 MCV 84.4 fL (80.0-100.0) 10/03/25 05:32 MCH 26.9 pg (27.0-34.0) L 10/03/25 05:32 MCHC 31.9 g/dL (33.0-35.0) L 10/03/25 05:32 RDW 17.6 % (11.6-16.5) H 10/03/25 05:32 Plt Count 175 X10^3/uL (150.0-450.0) 10/03/25 05:32 MPV 9.0 fL (7.4-11.0) 10/03/25 05:32 Neut % (Auto) 62.2 % (42.0-75.0) 10/03/25 05:32 Lymph % (Auto) 24.3 % (21.0-51.0) 10/03/25 05:32 [place] % (Auto) 9.9 % (0.0-13.0) 10/03/25 05:32 Eos % (Auto) 2.8 % (0.9-2.9) 10/03/25 05:32 Baso % (Auto) 0.8 % (0.2-1.0) 10/03/25 05:32 Neut # (Auto) 1.7 x10^3/uL (2.2-4.8) L 10/03/25 05:32 Lymph # (Auto) 0.7 X10^3/uL (1.3-2.9) L 10/03/25 05:32 [place] # (Auto) 0.3 x10^3/uL (0.3-0.8) 10/03/25 05:32 Eos # (Auto) 0.1 x10^3/uL (0.0-0.2) 10/03/25 05:32 Baso # (Auto) 0.0 X10^3/uL (0.0-0.1) 10/03/25 05:32 Absolute Nucleated RBC 0.2 /100WBC 10/03/25 05:32 PT 18.5 SECONDS (11.8-14.3) 10/01/25 16:02 INR Target Range - 10/01/25 16:02 INR 1.53 (0.8-1.3) H 10/01/25 16:02 APTT 36.2 SECONDS (22.9-36.5) 10/01/25 16:02 PTT Comment - 10/01/25 16:02 D-Dimer 1.10 ug/ml (0.0-0.57) H 10/01/25 16:02 Sodium 140 mmol/L (136-145) 10/03/25 05:32 Corrected Sodium 141 mmol/L (136-145) 10/03/25 05:32 Potassium 4.3 mmol/L (3.5-5.1) 10/03/25 05:32 Chloride 103 mmol/L (98-107) 10/03/25 05:32 Carbon Dioxide 28.9 mmol/L (21-32) 10/03/25 05:32 BUN 34 mg/dL (7-18) H 10/03/25 05:32 Creatinine 1.59 mg/dL (0.55-1.02) H 10/03/25 05:32 Est GFR (MDRD) Af Amer 44 (>60) L 10/03/25 05:32 Est GFR (MDRD) Non-Af 37 (>60) L 10/03/25 05:32 Glucose 147 mg/dL (65-99) H 10/03/25 05:32 POC Glucose (mg/dL) 122 mg/dL (65-99) H 10/03/25 11:05 Calcium 8.2 mg/dL (8.5-10.1) L 10/03/25 05:32 Corrected Calcium 9.2 mg/dL (8.5-10.1) 10/03/25 05:32 Magnesium 2.4 mg/dL (2.0-2.9) 10/03/25 05:32 Total Bilirubin 0.50 mg/dL (0.2-1.0) 10/03/25 05:32 AST 49 Units/L (15-37) H 10/03/25 05:32 ALT 47 Units/L (12-78) 10/03/25 05:32 Alkaline Phosphatase 200 Units/L (46-116) H 10/03/25 05:32 Troponin I High Sens 22.6 ng/L (4.0-60.0) 10/02/25 02:35 B-Natriuretic Peptide 625 pg/mL (0-79) H 10/02/25 02:35 Total Protein 7.4 g/dL (6.4-8.2) 10/03/25 05:32 Albumin 2.7 g/dL (3.4-5.0) L 10/03/25 05:32 Globulin 4.7 g/dL (2.5-4.5) H 10/03/25 05:32 Albumin/Globulin Ratio 0.6 Ratio (1.1-2.1) L 10/03/25 05:32 TSH 3rd Generation 3.228 uIU/mL (0.358-3.74) 10/02/25 15:15 Specimen Type Clean catch urine 10/01/25 15:38 Urine Color Straw (YELLOW) 10/01/25 15:38 Urine Appearance Clear (CLEAR) 10/01/25 15:38 Urine pH 7.0 (5.0 - 8.0) 10/01/25 15:38 Ur Specific [place] 1.005 (1.000-1.030) 10/01/25 15:38 Urine Protein Negative (NEGATIVE) 10/01/25 15:38 Urine Glucose (UA) 3+ (NEGATIVE) 10/01/25 15:38 Urine Ketones Negative (NEGATIVE) 10/01/25 15:38 Urine Blood Negative (NEGATIVE) 10/01/25 15:38 Urine Nitrite Negative (NEGATIVE) 10/01/25 15:38 Urine Bilirubin Negative (NEGATIVE) 10/01/25 15:38 Urine Urobilinogen Normal (NORMAL) 10/01/25 15:38 Ur Leukocyte Esterase 1+ (NEGATIVE) 10/01/25 15:38 Urine RBC None seen /HPF (0-3) 10/01/25 15:38 Urine WBC 0-2 /HPF (0-5) 10/01/25 15:38 Ur Squamous Epith Cells Rare /HPF (NEGATIVE) 10/01/25 15:38 Urine Bacteria Trace /HPF (NEGATIVE) 10/01/25 15:38 Ur Culture Indicated? No/not indicated 10/01/25 15:38 Urine Opiates Screen Negative (NEG=<300) 10/01/25 15:38 Urine Methadone Screen Negative (NEG=<300) 10/01/25 15:38 Ur Barbiturates Screen Negative (NEG=<200) 10/01/25 15:38 Ur Phencyclidine Scrn Negative (NEG=<25) 10/01/25 15:38 Ur Amphetamines Screen Negative (NEG=<1000) 10/01/25 15:38 U Benzodiazepines Scrn Negative (NEG=<200) 10/01/25 15:38 Urine Cocaine Screen Negative (NEG=<300) 10/01/25 15:38 U Marijuana (THC) Screen Negative (NEG=<50) 10/01/25 15:38 Plan (1) CHF exacerbation: Status: Acute Qualifiers: Heart failure type: unspecified Qualified Code(s): I50.9 - Heart failure, unspecified (2) A-fib: Status: Chronic Qualifiers: Atrial fibrillation type: unspecified chronic Qualified Code(s): I48.20 - Chronic atrial fibrillation, unspecified (3) HTN (hypertension): Status: Chronic Qualifiers: Hypertension type: primary hypertension Qualified Code(s): I10 - Essential (primary) hypertension (4) JERAMY (obstructive sleep apnea): Status: Acute (5) Pulmonary hypertension: Status: Acute (6) HIV (human immunodeficiency virus infection): Status: Acute
[2025-10-03] MEDS: NS 1,000 ML IV 100 ML IV PRN (14:03)
[2025-10-03] MEDS: NS 500 ML IV 500 ML IV ONE (14:03)
[2025-10-03] MEDS: DIPRIVAN VIAL 20 ML ONE (14:10)
[2025-10-03] MEDS: DIPRIVAN VIAL 100 ML IVP PRN (14:14)
[2025-10-03] MEDS: XYLOCAINE 2 % (PLAIN) IVP PRN (14:14)
--- NOTE | 2025-10-03 14:30 | CARDIOVERT ---
Cardioversion Note Date of Procedure: Date: 10/03/25 Note Cardioversion note: precardioversion dx: afib/flutter post cardioversion dx: sinus bradycardia anesthesia per anesthesia procedure: consent obtained. anesthesia gave adequate sedation- ERWIN was performed with no contraindications found- 200J of synchronous electricity was given to chest converting her to sinus bradycardia- no complications noted final impression- successful CV to sinus rhythm plan: stop cardizem- add arb- cont bb/doac/amiodorone- wants to f/u dr [place]- need JERAMY therapy with known severe JERAMY per sleep study and enlarged rheart/pulm htn- probably the reason for her atrial arrythmias.
--- NOTE | 2025-10-03 14:33 | NOTE.SOAP ---
Soap Note Note for Day of Date of Exam: 10/03/25 Subjective Data Subjective Data: successful cardioversion to sinus Assessment Assessment: afib/flutter s/p CV- cardiomyopathy/JERAMY/big r heart/pulm htn Plan Plan: stop ccb. add arb. cont bb/doac/amiodorone- needs sleep apnea therapy due to pulm htn
[2025-10-03] MEDS: CORDARONE TAB 200 MG PO SCH (21:35)
[2025-10-03] MEDS: HYDROCORTISONE CRM 1% TOP PRN (23:12)
[2025-10-04 05:14] LABS: MEAN PLATELET VOLUME 9.2 fL (7.4-11.0)
[2025-10-04 05:25] LABS: COR CA(FOR HYPOALB) 8.9 mg/dL (8.5-10.1); COR NA(FOR HYPERGLY) 142.0 mmol/L (136-145); CREATININE 1.91 mg/dL (0.55-1.02); eGFR NON BLACK RACES 30.0 (>60)
[2025-10-04 05:41] LABS: RED CELL DISTRIBUTION WIDTH 18.0 % (11.6-16.5)
[2025-10-04] MEDS: ZOFRAN INJ 4 MG VIAL IVP PRN (08:21)
[2025-10-04] MEDS: DIOVAN TAB 80 MG PO SCH (08:22)
[2025-10-04] MEDS ORDERED: DIOVAN TAB 80 MG PO SCH (09:00)
[2025-10-04] MEDS ORDERED: LASIX PO SCH (09:00)
[2025-10-04] MEDS: BUMEX TAB 1 MG PO SCH (10:28)
[2025-10-05 03:56] VITALS: RESP 20
[2025-10-05 06:21] LABS: MEAN PLATELET VOLUME 9.1 fL (7.4-11.0); RED CELL DISTRIBUTION WIDTH 18.0 % (11.6-16.5)
[2025-10-05 06:33] LABS: COR CA(FOR HYPOALB) 9.0 mg/dL (8.5-10.1); COR NA(FOR HYPERGLY) 142.0 mmol/L (136-145); CREATININE 1.89 mg/dL (0.55-1.02); eGFR NON BLACK RACES 30.0 (>60)
[2025-10-05 07:21] LABS: PLATELET MORPHOLOGY COMMENT NORMAL (NORMAL)
[2025-10-05 10:12] VITALS: BP 100/62; PULSE 55; TEMP 98.4; O2SAT 96
--- NOTE | 2025-10-05 13:13 | PCM.DCPLAN ---
DISCHARGE SUMMARY Admission Date Date of Admission: 10/01/25 Discharge Date Discharge Date: 10/05/25 Admission Diagnoses (1) CHF exacerbation: Status: Acute (2) A-fib: Status: Chronic (3) HTN (hypertension): Status: Chronic (4) JERAMY (obstructive sleep apnea): Status: Acute (5) Pulmonary hypertension: Status: Acute (6) HIV (human immunodeficiency virus infection): Status: Acute Discharge Medications Discharge Medications: Home Medication List amiodarone 200 mg tablet 200 mg PO BID 10/01/25 [History] apixaban 5 mg tablet (Eliquis) 5 mg PO BID 10/01/25 [History] bictegravir 50 mg-emtricitabine 200 mg-tenofovir alafenam 25 mg tablet (Biktarvy) 1 tab PO QDAY 10/01/25 [History] bumetanide 1 mg tablet 1 mg PO QDAY 10/01/25 [History] diltiazem HCl 240 mg capsule,extended release 24 hr, controlled (DILT-XR) 240 mg PO QDAY 10/01/25 [History] insulin glargine 100 unit/mL subcutaneous solution (Lantus U-100 Insulin) 15 unit subcut BID 10/01/25 [History] metoprolol succinate 50 mg tablet,extended release 24 hr 100 mg PO QDAY 10/01/25 [History] Prescriptions: Hospital Course Vital Signs: Vital Signs Temperature 98.4 F Temperature 98.5 F Pulse Rate [Brachial] 55 Pulse Rate [Brachial] 58 Respiratory Rate 20 Respiratory Rate 20 Respiratory Rate 16 Respiratory Rate 20 Blood Pressure [Right Arm] 100/62 Blood Pressure [Right Arm] 115/67 O2 Sat by Pulse Oximetry 96 O2 Sat by Pulse Oximetry 100 Latest Lab Results: Laboratory Last Values WBC 2.2 X10^3/uL (3.6-10.0) L 10/05/25 05:10 RBC 3.18 X10^6/uL (3.5-5.4) L 10/05/25 05:10 Hgb 8.6 g/dL (12.0-16.0) L 10/05/25 05:10 Hct 26.9 % (36.0-47.0) L 10/05/25 05:10 MCV 84.6 fL (80.0-100.0) 10/05/25 05:10 MCH 27.0 pg (27.0-34.0) 10/05/25 05:10 MCHC 31.9 g/dL (33.0-35.0) L 10/05/25 05:10 RDW 18.0 % (11.6-16.5) H 10/05/25 05:10 Plt Count 167 X10^3/uL (150.0-450.0) 10/05/25 05:10 Plt Count Comment Adequate (ADEQUATE) 10/05/25 05:10 MPV 9.1 fL (7.4-11.0) 10/05/25 05:10 Neut % (Auto) 50.4 % (42.0-75.0) 10/05/25 05:10 Lymph % (Auto) 35.4 % (21.0-51.0) 10/05/25 05:10 [place] % (Auto) 9.7 % (0.0-13.0) 10/05/25 05:10 Eos % (Auto) 4.0 % (0.9-2.9) H 10/05/25 05:10 Baso % (Auto) 0.5 % (0.2-1.0) 10/05/25 05:10 Neut # (Auto) 1.1 x10^3/uL (2.2-4.8) L 10/05/25 05:10 Lymph # (Auto) 0.8 X10^3/uL (1.3-2.9) L 10/05/25 05:10 [place] # (Auto) 0.2 x10^3/uL (0.3-0.8) L 10/05/25 05:10 Eos # (Auto) 0.1 x10^3/uL (0.0-0.2) 10/05/25 05:10 Baso # (Auto) 0.0 X10^3/uL (0.0-0.1) 10/05/25 05:10 Absolute Nucleated RBC 0.8 /100WBC 10/05/25 05:10 Total Counted 100 10/05/25 05:10 Neutrophils % (Manual) 54 % (39-76) 10/05/25 05:10 Lymphocytes % (Manual) 36 % (13-43) 10/05/25 05:10 Monocytes % (Manual) 8 % (4-9) 10/05/25 05:10 Eosinophils % (Manual) 2 % (0-6) 10/05/25 05:10 Plt Morphology Comment Normal (NORMAL) 10/05/25 05:10 RBC Morphology Abnormal (NORMAL) A 10/05/25 05:10 Anisocytosis Slight A 10/05/25 05:10 PT 18.5 SECONDS (11.8-14.3) 10/01/25 16:02 INR Target Range - 10/01/25 16:02 INR 1.53 (0.8-1.3) H 10/01/25 16:02 APTT 36.2 SECONDS (22.9-36.5) 10/01/25 16:02 PTT Comment - 10/01/25 16:02 D-Dimer 1.10 ug/ml (0.0-0.57) H 10/01/25 16:02 Sodium 141 mmol/L (136-145) 10/05/25 05:10 Corrected Sodium 142 mmol/L (136-145) 10/05/25 05:10 Potassium 3.9 mmol/L (3.5-5.1) 10/05/25 05:10 Chloride 104 mmol/L (98-107) 10/05/25 05:10 Carbon Dioxide 28.0 mmol/L (21-32) 10/05/25 05:10 BUN 41 mg/dL (7-18) H 10/05/25 05:10 Creatinine 1.89 mg/dL (0.55-1.02) H 10/05/25 05:10 Est GFR (MDRD) Af Amer 36 (>60) L 10/05/25 05:10 Est GFR (MDRD) Non-Af 30 (>60) L 10/05/25 05:10 Glucose 122 mg/dL (65-99) H 10/05/25 05:10 POC Glucose (mg/dL) 168 mg/dL (65-99) H 10/05/25 11:34 Calcium 7.9 mg/dL (8.5-10.1) L 10/05/25 05:10 Corrected Calcium 9.0 mg/dL (8.5-10.1) 10/05/25 05:10 Magnesium 2.4 mg/dL (2.0-2.9) 10/03/25 05:32 Total Bilirubin 0.40 mg/dL (0.2-1.0) 10/05/25 05:10 AST 54 Units/L (15-37) H 10/05/25 05:10 ALT 52 Units/L (12-78) 10/05/25 05:10 Alkaline Phosphatase 225 Units/L (46-116) H 10/05/25 05:10 Troponin I High Sens 22.6 ng/L (4.0-60.0) 10/02/25 02:35 B-Natriuretic Peptide 625 pg/mL (0-79) H 10/02/25 02:35 Total Protein 7.4 g/dL (6.4-8.2) 10/05/25 05:10 Albumin 2.6 g/dL (3.4-5.0) L 10/05/25 05:10 Globulin 4.8 g/dL (2.5-4.5) H 10/05/25 05:10 Albumin/Globulin Ratio 0.5 Ratio (1.1-2.1) L 10/05/25 05:10 TSH 3rd Generation 3.228 uIU/mL (0.358-3.74) 10/02/25 15:15 Specimen Type Clean catch urine 10/01/25 15:38 Urine Color Straw (YELLOW) 10/01/25 15:38 Urine Appearance Clear (CLEAR) 10/01/25 15:38 Urine pH 7.0 (5.0 - 8.0) 10/01/25 15:38 Ur Specific [place] 1.005 (1.000-1.030) 10/01/25 15:38 Urine Protein Negative (NEGATIVE) 10/01/25 15:38 Urine Glucose (UA) 3+ (NEGATIVE) 10/01/25 15:38 Urine Ketones Negative (NEGATIVE) 10/01/25 15:38 Urine Blood Negative (NEGATIVE) 10/01/25 15:38 Urine Nitrite Negative (NEGATIVE) 10/01/25 15:38 Urine Bilirubin Negative (NEGATIVE) 10/01/25 15:38 Urine Urobilinogen Normal (NORMAL) 10/01/25 15:38 Ur Leukocyte Esterase 1+ (NEGATIVE) 10/01/25 15:38 Urine RBC None seen /HPF (0-3) 10/01/25 15:38 Urine WBC 0-2 /HPF (0-5) 10/01/25 15:38 Ur Squamous Epith Cells Rare /HPF (NEGATIVE) 10/01/25 15:38 Urine Bacteria Trace /HPF (NEGATIVE) 10/01/25 15:38 Ur Culture Indicated? No/not indicated 10/01/25 15:38 Urine Opiates Screen Negative (NEG=<300) 10/01/25 15:38 Urine Methadone Screen Negative (NEG=<300) 10/01/25 15:38 Ur Barbiturates Screen Negative (NEG=<200) 10/01/25 15:38 Ur Phencyclidine Scrn Negative (NEG=<25) 10/01/25 15:38 Ur Amphetamines Screen Negative (NEG=<1000) 10/01/25 15:38 U Benzodiazepines Scrn Negative (NEG=<200) 10/01/25 15:38 Urine Cocaine Screen Negative (NEG=<300) 10/01/25 15:38 U Marijuana (THC) Screen Negative (NEG=<50) 10/01/25 15:38 Hospital Course: Patient with multiple admissions to multiple facilities over the last few months due to CHF exacerbations. Did undergo cardioversion with cardiology this week and was observed due to a slight bump in her creatinine. It has remained stable overnight. Breathing is doing well. She is requesting to go home. Family is at the bedside. She has been discharged home with plans to follow-up with her regular residential support specialist and PCP in the next 1-2 weeks. She was instructed to monitor daily weights along with her vitals. Continue current medications as recommended by cardiology. She is to stop her diltiazem at home as it was stopped here. PE: Well-developed, well-nourished, obese female in no acute distress. Head NCAT, hearing grossly normal. Speech is clear and unlabored. Heart faint crackles bilaterally with heart rate RRR. Belly is soft and nontender with bowel sounds present. Nonpitting edema of the bilateral lower extremities. Mood and affect are appropriate.
--- NOTE | 2025-10-07 16:44 | PCM.PROG ---
Progress Note Progress Note for Day of Date of Exam: 10/04/25 Subjective Subjective: Patient is a 49-year-old female with a past medical history of CHF, atrial fibrillation, obstructive sleep apnea, hypertension, pulmonary hypertension, HIV, presenting with atrial fibrillation with RVR and CHF exacerbation. She did have a cardioversion and is doing well since. No acute events overnight. Labs/imaging: WBC 2.5, hemoglobin 8.6, platelets 178, sodium 139, potassium 4.2, creatinine 1.91. Cardiology recommendations include stopping calcium channel matteo, adding ARB, continue with beta-matteo, DOAC, amiodarone. She will need outpatient CPAP for obstructive sleep apnea. Today her renal function is elevated compared to prior. Will change her diuretic back to her home Bumex. Continue to monitor renal function today. Otherwise we will continue her current medications and current treatment plan. Continue closely monitor and follow-up labs/imaging. Past Medical Family Social History Allergies: Allergies Penicillins Allergy (Verified 10/01/25 16:33) Review of Systems ROS changes noted: see HPI Vital Signs and I&O's Intake and Output: Intake & Output 10/04/25 10/05/25 10/06/25 10/07/25 23:59 23:59 23:59 23:59 Intake Total 1040 / 1040 160 / 160 Output Total 50 / 50 180 / 180 Balance 990 / 990 -20 / -20 Physical Exam Oriented: Normal Respiratory: Normal Cardiovascular: Normal Auscultation: Bowel Sounds: Normal Tenderness: Normal Skin: Normal Musculoskeletal: Normal Psychiatric: Normal Mood Description: Calm Affect: Normal Speech Pattern: Clear and Appropriate Laboratory and Diagnostics 10/05/25 05:10 10/05/25 05:10 Labs: Laboratory WBC 2.2 X10^3/uL (3.6-10.0) L 10/05/25 05:10 RBC 3.18 X10^6/uL (3.5-5.4) L 10/05/25 05:10 Hgb 8.6 g/dL (12.0-16.0) L 10/05/25 05:10 Hct 26.9 % (36.0-47.0) L 10/05/25 05:10 MCV 84.6 fL (80.0-100.0) 10/05/25 05:10 MCH 27.0 pg (27.0-34.0) 10/05/25 05:10 MCHC 31.9 g/dL (33.0-35.0) L 10/05/25 05:10 RDW 18.0 % (11.6-16.5) H 10/05/25 05:10 Plt Count 167 X10^3/uL (150.0-450.0) 10/05/25 05:10 Plt Count Comment Adequate (ADEQUATE) 10/05/25 05:10 MPV 9.1 fL (7.4-11.0) 10/05/25 05:10 Neut % (Auto) 50.4 % (42.0-75.0) 10/05/25 05:10 Lymph % (Auto) 35.4 % (21.0-51.0) 10/05/25 05:10 [place] % (Auto) 9.7 % (0.0-13.0) 10/05/25 05:10 Eos % (Auto) 4.0 % (0.9-2.9) H 10/05/25 05:10 Baso % (Auto) 0.5 % (0.2-1.0) 10/05/25 05:10 Neut # (Auto) 1.1 x10^3/uL (2.2-4.8) L 10/05/25 05:10 Lymph # (Auto) 0.8 X10^3/uL (1.3-2.9) L 10/05/25 05:10 [place] # (Auto) 0.2 x10^3/uL (0.3-0.8) L 10/05/25 05:10 Eos # (Auto) 0.1 x10^3/uL (0.0-0.2) 10/05/25 05:10 Baso # (Auto) 0.0 X10^3/uL (0.0-0.1) 10/05/25 05:10 Absolute Nucleated RBC 0.8 /100WBC 10/05/25 05:10 Total Counted 100 10/05/25 05:10 Neutrophils % (Manual) 54 % (39-76) 10/05/25 05:10 Lymphocytes % (Manual) 36 % (13-43) 10/05/25 05:10 Monocytes % (Manual) 8 % (4-9) 10/05/25 05:10 Eosinophils % (Manual) 2 % (0-6) 10/05/25 05:10 Plt Morphology Comment Normal (NORMAL) 10/05/25 05:10 RBC Morphology Abnormal (NORMAL) A 10/05/25 05:10 Anisocytosis Slight A 10/05/25 05:10 PT 18.5 SECONDS (11.8-14.3) 10/01/25 16:02 INR Target Range - 10/01/25 16:02 INR 1.53 (0.8-1.3) H 10/01/25 16:02 APTT 36.2 SECONDS (22.9-36.5) 10/01/25 16:02 PTT Comment - 10/01/25 16:02 D-Dimer 1.10 ug/ml (0.0-0.57) H 10/01/25 16:02 Sodium 141 mmol/L (136-145) 10/05/25 05:10 Corrected Sodium 142 mmol/L (136-145) 10/05/25 05:10 Potassium 3.9 mmol/L (3.5-5.1) 10/05/25 05:10 Chloride 104 mmol/L (98-107) 10/05/25 05:10 Carbon Dioxide 28.0 mmol/L (21-32) 10/05/25 05:10 BUN 41 mg/dL (7-18) H 10/05/25 05:10 Creatinine 1.89 mg/dL (0.55-1.02) H 10/05/25 05:10 Est GFR (MDRD) Af Amer 36 (>60) L 10/05/25 05:10 Est GFR (MDRD) Non-Af 30 (>60) L 10/05/25 05:10 Glucose 122 mg/dL (65-99) H 10/05/25 05:10 POC Glucose (mg/dL) 168 mg/dL (65-99) H 10/05/25 11:34 Calcium 7.9 mg/dL (8.5-10.1) L 10/05/25 05:10 Corrected Calcium 9.0 mg/dL (8.5-10.1) 10/05/25 05:10 Magnesium 2.4 mg/dL (2.0-2.9) 10/03/25 05:32 Total Bilirubin 0.40 mg/dL (0.2-1.0) 10/05/25 05:10 AST 54 Units/L (15-37) H 10/05/25 05:10 ALT 52 Units/L (12-78) 10/05/25 05:10 Alkaline Phosphatase 225 Units/L (46-116) H 10/05/25 05:10 Troponin I High Sens 22.6 ng/L (4.0-60.0) 10/02/25 02:35 B-Natriuretic Peptide 625 pg/mL (0-79) H 10/02/25 02:35 Total Protein 7.4 g/dL (6.4-8.2) 10/05/25 05:10 Albumin 2.6 g/dL (3.4-5.0) L 10/05/25 05:10 Globulin 4.8 g/dL (2.5-4.5) H 10/05/25 05:10 Albumin/Globulin Ratio 0.5 Ratio (1.1-2.1) L 10/05/25 05:10 TSH 3rd Generation 3.228 uIU/mL (0.358-3.74) 10/02/25 15:15 Specimen Type Clean catch urine 10/01/25 15:38 Urine Color Straw (YELLOW) 10/01/25 15:38 Urine Appearance Clear (CLEAR) 10/01/25 15:38 Urine pH 7.0 (5.0 - 8.0) 10/01/25 15:38 Ur Specific [place] 1.005 (1.000-1.030) 10/01/25 15:38 Urine Protein Negative (NEGATIVE) 10/01/25 15:38 Urine Glucose (UA) 3+ (NEGATIVE) 10/01/25 15:38 Urine Ketones Negative (NEGATIVE) 10/01/25 15:38 Urine Blood Negative (NEGATIVE) 10/01/25 15:38 Urine Nitrite Negative (NEGATIVE) 10/01/25 15:38 Urine Bilirubin Negative (NEGATIVE) 10/01/25 15:38 Urine Urobilinogen Normal (NORMAL) 10/01/25 15:38 Ur Leukocyte Esterase 1+ (NEGATIVE) 10/01/25 15:38 Urine RBC None seen /HPF (0-3) 10/01/25 15:38 Urine WBC 0-2 /HPF (0-5) 10/01/25 15:38 Ur Squamous Epith Cells Rare /HPF (NEGATIVE) 10/01/25 15:38 Urine Bacteria Trace /HPF (NEGATIVE) 10/01/25 15:38 Ur Culture Indicated? No/not indicated 10/01/25 15:38 Urine Opiates Screen Negative (NEG=<300) 10/01/25 15:38 Urine Methadone Screen Negative (NEG=<300) 10/01/25 15:38 Ur Barbiturates Screen Negative (NEG=<200) 10/01/25 15:38 Ur Phencyclidine Scrn Negative (NEG=<25) 10/01/25 15:38 Ur Amphetamines Screen Negative (NEG=<1000) 10/01/25 15:38 U Benzodiazepines Scrn Negative (NEG=<200) 10/01/25 15:38 Urine Cocaine Screen Negative (NEG=<300) 10/01/25 15:38 U Marijuana (THC) Screen Negative (NEG=<50) 10/01/25 15:38 Plan (1) CHF exacerbation: Status: Acute Qualifiers: Heart failure type: unspecified Qualified Code(s): I50.9 - Heart failure, unspecified (2) A-fib: Status: Chronic Qualifiers: Atrial fibrillation type: unspecified chronic Qualified Code(s): I48.20 - Chronic atrial fibrillation, unspecified (3) HTN (hypertension): Status: Chronic Qualifiers: Hypertension type: primary hypertension Qualified Code(s): I10 - Essential (primary) hypertension (4) JERAMY (obstructive sleep apnea): Status: Acute (5) Pulmonary hypertension: Status: Acute (6) HIV (human immunodeficiency virus infection): Status: Acute
== END 2025-10-05 12:55 | disposition home or self-care (01) ==
LOC: ER 14:47 → MED/SURG 14:47
PROVIDERS: ADMIT Internal Medicine; ATTEND Internal Medicine